=== PATIENT | female | born 1980 | race Caucasian/White ===

== ENCOUNTER 2016-08-26 08:41 | Emergency (ER) | payer OTHER ==
[~2016-08-26] VITALS: Ht 160 cm; Wt 73.9 kg
[2016-08-26] MEDS ORDERED: KETOROLAC 30 MG/1 ML ONE (09:42)
[2016-08-26] MEDS ORDERED: OXYcodone/APAP 5/325MG TABLET ONE (09:42)
[2016-08-26] MEDS ORDERED: KETOROLAC 30 MG/1 ML IM ONE (10:00)
[2016-08-26] MEDS ORDERED: OXYcodone/APAP 5/325MG TABLET PO ONE (10:00)
[2016-08-26 10:02] LABS: HEMOGLOBIN 14.3 g/dL (11.7-16.4)
[2016-08-26 10:03] LABS: PATH.CAST-FLAG NOT PRESENT; SPERM-FLAG NOT PRESENT; SRC-FLAG NOT PRESENT; XTAL-FLAG NOT PRESENT; YLC-FLAG NOT PRESENT
[2016-08-26 10:15] LABS: ASPARTATE AMINO TRANSFERASE 8 U/L (15-37); BLOOD UREA NITROGEN 9 mg/dL (7-18)
[2016-08-26] MEDS ORDERED: ONDANSETRON ODT 4 MG PO ONE (11:00)
[2016-08-26] MEDS ORDERED: ONDANSETRON 2MG/ML, 2ML ONE (11:02)
[2016-08-26] MEDS ORDERED: ONDANSETRON 2MG/ML, 2ML IVPush ONE (11:30)
[2016-08-26 13:16] VITALS: BP 107/72
== END 2016-08-26 13:25 | disposition home or self-care (01) ==
LOC: ED 09:10
DX: M46.1 Sacroiliitis, not elsewhere classified (principal); N83.201 Unspecified ovarian cyst, right side; Z90.89 Acquired absence of other organs
CPT/HCPCS: 36415; 74177; 80053; 81001; 83690; 84703; 85025; 87086; 96372; 96374; 99285; J1885; J2405

== ENCOUNTER → 2018-11-13 | Outpatient (CLI) | payer OTHER ==
[2018-11-13 09:56] LABS: BASOPHILS # (AUTO) 0.03 x10^3/uL (0-0.1); BASOPHILS % (AUTO) 1 % (0-1); EOSINOPHILS # (AUTO) 0.06 x10^3/uL (0-0.4); EOSINOPHILS % (AUTO) 1 % (1-7); LYMPHOCYTES # (AUTO) 1.42 x10^3/uL (1-3.4); LYMPHOCYTES % (AUTO) 25 % (22-44); MD NO; MEAN CORPUSCULAR HEMOGLOBIN 31.1 pg (27.0-34.8); MEAN CORPUSCULAR HGB CONC 32.9 g/dL (32.4-35.8); MEAN CORPUSCULAR VOLUME 94.4 fL (80-100); MEAN PLATELET VOLUME 7.8 fL (7.4-10.4); MONOCYTES # (AUTO) 0.36 x10^3/uL (0.2-0.8); MONOCYTES % (AUTO) 6 % (2-9); NEUTROPHILS # (AUTO) 3.84 x10^3/uL (1.8-6.8); NEUTROPHILS % (AUTO) 67 % (42-75); PLATELET COUNT 171 x10^3/uL (130-400); RED BLOOD COUNT 4.43 x10^6/uL (3.82-5.3); RED CELL DISTRIBUTION WIDTH 12.7 % (9.6-15.2)
[2018-11-13 10:07] LABS: ALBUMIN 4.1 g/dL (3.4-5.0); ANION GAP 5 mmol/L (5-15); CALCIUM 7.9 mg/dL (8.5-10.1); CHLORIDE 107 mmol/L (98-107)
[2018-11-13 10:17] LABS: ALANINE AMINOTRANSFERASE 18 U/L (12-78); ALKALINE PHOSPHATASE 42 U/L (45-117); BILIRUBIN,TOTAL 0.6 mg/dL (0.2-1.0); CREATININE 0.88 mg/dL (0.55-1.02); FREE T4 (FREE THYROXINE) 1.52 ng/dL (0.76-1.46); HDL CHOLESTEROL (DIRECT) 54 mg/dL (40-60); TOTAL PROTEIN 7.4 g/dL (6.4-8.2)
[2018-11-13 10:36] LABS: CHOL/HDL RATIO 2.4; CHOLESTEROL, TOTAL 132 mg/dL (140-239); HDL CHOL % 41 % (28-40); LDL CHOLESTEROL,CALCULATED 71 mg/dL (54-169); LDL/HDL RATIO 1.3 (0.5-3.0); TRIGLYCERIDES 36 mg/dL (50-200); VLDL CHOLESTEROL 7 mg/dL (0-25)
== END | disposition home or self-care (01) ==
LOC: LAB 09:23
PROVIDERS: ATTEND Family Medicine
DX: Z13.1 Encounter for screening for diabetes mellitus (principal); Z13.220 Encounter for screening for lipoid disorders; R53.83 Other fatigue; E55.9 Vitamin D deficiency, unspecified; E03.9 Hypothyroidism, unspecified
CPT/HCPCS: 36415; 80053; 80061; 82306; 83036; 84439; 84443; 85025